=== PATIENT | female | born 1995 | race Caucasian/White ===

== ENCOUNTER 2025-05-27 23:20 | Observation (INO) | payer OTHER, SELFPAY ==
[2025-05-28 01:24] VITALS: BMI 34.7
--- NOTE | 2025-05-28 01:24 | OBADM ---
This patient, Cristina Turner, admitted to the OB room Labor/Delivery/Recovery 106 for observation. Patient/family oriented to hospital policies and general routines including ID bracelet, bed and alarms, visiting hours, pain management, procedures, bathroom and other care routines, personal items, smoking policy, room service/diet, and visiting hours. Patient/Family are encouraged to report perceived risks to care and to ask questions if they do not understand what they are told or what they should do.
[2025-05-28 01:45] VITALS: BP 112/71; PULSE 73
--- NOTE | 2025-05-29 09:37 | PM.OBTRLD ---
OB - Triage/Final Diagnosis Visit Information Reason for evaluation: threatened labor Comments/Additional reasons for admission: I have assessed the risk for this patient, Cristina Durga Quinterosemmahernandez, and determined that she would benefit from observation care.
== END 2025-05-28 01:47 | disposition home or self-care (01) ==
PROVIDERS: Admitting Provider Obstetrics & Gynecology; PCP Nurse Practitioner; Visit Provider Obstetrics & Gynecology
DX: O47.1 False labor at or after 37 completed weeks of gestation (principal); Z3A.40 40 weeks gestation of pregnancy
CPT/HCPCS: 59025; G0378; G0379

== ENCOUNTER 2025-05-29 06:24 | Inpatient (IN) | payer OTHER, SELFPAY ==
[2025-05-29] VITALS (243 sets, daily range): BP systolic 83–176; BP diastolic 45–134; PULSE 50–242; RESP 18; TEMP 36.4–37.7; O2SAT 80–100; BMI 34.6
--- OUTSIDE RECORDS SUMMARY | 2025-05-29 06:31 | XMS_ITS | Clinical Summary ---
Author Organization [facility] Address [address] [place] [address] Care Team Providers Care Medical Staff Physician Name Role Phone Emily Cuba CURRICULUM DEVELOPER Primary Care Provider [phone] Allergies Active Allergy Reactions Criticality Noted Date Comments Banana Swelling,Other (see comment) Low 12/10/2014 Swelling, itching Dander Other (see comment) Low 12/14/2018 cats Medications albuterol sulfate HFA 108 (90 Base) MCG/ACT inhalerIndicatio ns:Acute bronchitis, unspecified organism Inhale 2 puffs into the lungs every 4 (four) hours as needed for Wheezing or Shortness of breath. 18 g 1 Active ALPRAZolam 0.25 MG tabletIndication s:Anxiety Take 1/2 to 1 tab daily as needed for anxiety 10 tablet 1 Active Active Problems Problem Noted Date Diagnosed Date Premenstrual dysphoric disorder 03/30/2021 Menstrual syndrome 03/30/2021 Generalized anxiety disorder 11/12/2020 Allergic urticaria 07/26/2017 Overview (08/13/2018): Date Onset: 07/26/2017 Allergic rhinitis 08/04/2012 Resolved Problems Problem Noted Date Diagnosed Date Resolved Date Anxiety and depression 09/02/202011/12 Immunizations Immunization Administration Dates Next Due Dtap 12/26/2002, 9,07/14/1998,04/28/1998,0 02/24/1998 H1N1 2009 Influenza Vaccine 07/28/2009 H1N1 Injectable 2009 Influenza 07/28/2009 HPV 09/27/2012, 2,05/24/2012,05/24/2012,0 03/27/2012,03/27/2012 Hepatitis A Vaccine - 2 Dose 09/27/2012,03/27/20 12 Hepatitis B 04/13/1999,04/28/1998,02/24/1998 Hib (Generic) 01/04/2006,04/13/1999,04/28/1998 ,02/24/1998 Hib-Hepatitis B (Comvax) 04/13/1999,04/28/1998,0 02/24/1998 Influenza (Generic) 07/28/2009 MMR 12/26/2002,01/06/1999 Meningococcal 05/24/2012 Meningococcal (Generic) 03/19/2015,05/24/2012 Pneumococcal (Generic) 01/04/2006 Pneumococcal (Pneumovax 23) 01/04/2006 Polio IPV (Ipol) 12/26/2002,01/06/1999, 8,02/24/1998 Polio Ipv (Generic) 12/26/2002,01/06/1999,1997,02/24/1998 Tdap (Generic) 03/27/2012 Varicella Vaccine 05/24/2012,04/13/1999 Family History Medical History Relation Comments risk stroke Father Breast Cancer Mother Lung Cancer Mother Breast Cancer Paternal Grandmother alzheimers Paternal Grandmother bone cancer Paternal Grandmother skin cancer Paternal Grandmother Relation Status Comments Father Mother Paternal Grandmother Social History Tobacco Use Types Packs/Day Years Used Date Smoking Tobacco: Never Smokeless Tobacco: Never Tobacco Cessation:Counseling Given: Not Answered Comments:Provider to dormitory counselor Alcohol Use Standard Drinks/Week Comments No 0 (1 standard drink = 0.6 oz pur e alcohol) AUDIT-C Answer Date Recorded Frequency of Alcohol Consumption Never 08/13/2018 Average Number of Drinks Not on file 018 Frequency of Binge Drinking Not on file 08/02 PHQ-2 Answer Date Recorded Patient Health Questionnaire-2 Score 0 10/09/2023 Education Answer Date Recorded What is the highest level of school you have completed or the highest degree you have received? 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 Not on file Not on file Not on file Last Filed Vital Signs Vital Sign Reading Time Taken Comments Blood Pressure 106/74 10/13/2023 11:29 AM MATH INTERVENTIONIST Pulse 104 10/13/2023 11:29 AM MATH INTERVENTIONIST Temperature 36.7 C (98 F) 10/13/2023 11:29 AM MATH INTERVENTIONIST Respiratory Rate 18 10/13/2023 11:29 AM MATH INTERVENTIONIST Oxygen Saturation 98% 10/13/2023 11:29 AM MATH INTERVENTIONIST Inhaled Oxygen Concentration - - Weight 74.4 kg (164 lb) 10/13/2023 11:29 AM MATH INTERVENTIONIST Height 160 cm (5' 3) 10/13/2023 11:29 AM MATH INTERVENTIONIST Body Mass Index 29.05 10/13/2023 11:29 AM MATH INTERVENTIONIST Plan of Treatment Health Maintenance Due Date Last Done Comments Hepatitis C 12/20/2015 DTaP, Tdap and Td Vaccines (7 - Td or Tdap) 03/27/2022 03/27/2012, 12/26/2002, 04/13/1999, Additional history exists Annual Physical 05/25/2022 05/25/2021 Cervical Cancer Screening Pap Smear (Age 21 to 29) Every 3 Years 05/25/2024 05/25/2021 Cervical Cancer Screening 05/25/2024 COVID-19 Vaccine ( season) 2024 PHQ-2 (Physician [place]) 10/02/2024 10/09/2023 Hepatitis B Vaccines Completed 04/13/1999, 04/13/1999, 04/28/1998, Additional history exists Pneumococcal Vaccine: Pediatrics (0 to 5 Years) and At-Risk Patients (6 to 49 Years) Aged Out 01/04/2006, 01/04/2006 No longer eligibl e based on patient's age to complete this topic HPV Vaccines Completed 09/27/2012, 09/02, 05/24/2012, Additional history exists Chlamydia Screening Females ages 16-24 Discontinued 12/10/2014 Meningococcal Vaccine Aged Out 03/19/2015 , 05/24/2012, 05/24/2012 No longer eligible based on patient's age to complete this topic Meningococcal B Vaccine Aged Out No l onger eligible based on patient's age to complete this topic RSV Immunizations Under 20 Months Aged Out No longer eligible based on patient's age to complete this topic Procedures Procedure Name Priority Date/Time Associated Diagnosis Comments CYTOPATH CERV/VAG THIN LAYER Routine 05/25/2021 12:00 AM CDT C.TRACHOMATIS RNA TMA Routine 12/10/2014 3:45 PM CDT from Last 3 Months or Most Recently Relevant to Health Maintenance Results * Cytopath Cerv/Vag Thin Layer (05/25/2021 12:00 AM CDT) COPATH REPORT [address] [address] [phone] Department of Pathology Pathology Report Gynecological Cytology Report Patient Name: LICHA ZAPIEN : 1995 (Age: 25) Location: [facility] Gender: F Collected Date: 05/25/2021 Med Rec #: [id number] Date Received: 05/26/2021 Date Reported: 05/26/2021 Provider: EMILY GARRISON-C Final Cytologic Diagnosis Satisfactory for evaluation. Endocervical component not identified. Negative for Intraepithelial Lesion or Malignancy. Electronically Signed Out By José Miguel Cardenas Source of Specimen(s) Cervical/Endocervi ann marie - Thin Prep Clinical History Screening, last Pap not provided. Z12.4 Date of Last Menstrual Period: spotting Billing Fee Code(s): A: [address] [facility] () [facility] 05/25/2021 05/26/2021 11: 08 AM CDT Comment:CERVICAL/ENDOCERVICA L - THIN PREP us Emily Cuba CURRICULUM DEVELOPER PATHOLOGY/CYTOLOGY ORDERABLES Final Result [facility] ([facility] [address] [place] [phone], * C.TRACHOMATIS RNA TMA (12/10/2014 3:45 PM CDT) CHLAMYDIA TRACHOMATIS RNA TMA NOT DETECTED NOT DETECTED [facility] TO EPIC CONVERSION N.GONORRHOEAE RNA TMA (QST) NOT DETECTED NOT DETECTED [facility] TO EPIC CONVERSION Comment: This test was performed using the APTIMA COMBO2 Assay ([employer] The analytical performance characteristics of this assay, when used to test SurePath specimens have been determined by [facility]. SOPHIE ESTEBANDO,MPH REPORT STATUS Not required [facility] TO EPIC CONVERSION Comment: THIS TEST WAS PERFORMED AT [facility] [address] [place] [address] 12/10/2014 3:45 PM CDT 12/10/2014 3:45 PM CDT Narrative [facility] TO EPIC CONVERSION - 12/12/2014 4:37 PM CDT This lab was migrated from [facility] and may be missing annotations or result text, please check the Media tab for the most complete results. Emily GARRISON MICROBIOLOGY - GENERAL ORDERA BLES Final Result [facility] TO EPIC CONVERSION from Last 3 Months or Most Recently Relevant to Health Maintenance Insurance [facility] Care Teams Medical Staff Physician Relationship Specialty Start Date End Date Emily Cuba FNP [address] [place] [address] [place] [address] PCP - General Nurse Practitioner Family 03/16/19
--- NOTE | 2025-05-29 06:54 | P.HP_ITS ---
H&P: HPI History of Present Illness Date/Time: 05/29/25 06:54 Chief Complaint: Here for induction of labor Narrative: 29 y/o G1 at 40 2/7 here for induction of labor for mild oligohydramnios. She feels some contractions. uncomplicated. GBS neg. Review of Systems Review of Systems: All systems reviewed & are unremarkable except as noted in HPI and below PMFSH Family History Family History Father Skin cancer COPD (chronic obstructive pulmonary disease) Grandparent Skin cancer Breast cancer Mother Breast cancer Lung cancer Social History Social History Smoking status: Never smoker Second hand tobacco smoke exposure: Yes Substance use: current Substance use type: does not use Lack of Transportation: No Lack of Food: Never True Current Housing: I Have Housing Concerned About Future Housing: No Difficulty Paying Gas/Electric Bills: No Difficulty Paying for Meds: No Currently Unemployed: No Education: High School Diploma/GED Difficulty w/ Childcare or Family Care: No Spiritual care concerns: No Meds Home Medications and Allergies Home Medications ?Medication ?Instructions ?Recorded ?Confirmed ?Type docosahexaenoic acid 200 mg mg PO 04/03/25 05/27/25 Hi story capsule ( DHA) Allergies Allergy/AdvReac Type Severity Reaction Status Date / Time bananas Allergy Mild Swelling Uncoded 05/29/25 07:02 of Lip/Tongue/Throat Vital Signs Vital Signs - 24 hr 05/29/25 06:42 Pulse Rate 100 Blood Pressure 124/77 Exam Const: Other: Well-developed, well-nourished female in no acute distress. Neck: Other: Neck: Trachea midline, no thyromegaly or masses. Resp: Other: Lungs: Normal respiratory effort. Clear to auscultation bilaterally. Cardio: Other: Heart: Regular rate and rhythm with normal S1-S2. GI: Other: ABD: Soft, nontender, nondistended, gravid. No guarding or rebound tenderness. No hepatosplenomegaly. NST reactive. TOCO: contractions every 3-5 min : Other: Cervix: 2/80/-2. AROM with meconium-stained fluid. Vertex. Back/Spine/Pelvis: Other: Back: No CVA tenderness. Skin: Other: Skin: No lesions, rashes or ulcers noted. Extrem: Other: Extremities: nontender with no edema Psych: Other: Mental status grossly normal, with normal mood and affect. Assessment and Plan Assessment and plan (1) : Qualifiers: Weeks of gestation: 40 weeks Qualified Code(s): Z3A.40 - 40 weeks gestation of Code(s): Z34.90 - Encounter for supervision of normal , unspecified, unspecified trimester Status: Acute Assessment and Plan: A: IUP at 40 2/7 weeks with oligohydramnios, here for induction of labor. P: Oxytocin. Anticipate . Peds aware of meconium. (2) Oligohydramnios: Qualifiers: Fetus number: single or unspecified fetus Trimester: third trimester Qualified Code(s): O41.03X0 - Oligohydramnios, third trimester, not applicable or unspecified Code(s): O41.00X0 - Oligohydramnios, unspecified trimester, not applicable or unspecified Status: Acute
[2025-05-29 07:01] LABS: Hematocrit 35.8 % (37.0-47.0); Hemoglobin 11.7 g/dL (12.0-15.0); Immature Granulocyte Percent A 0.4 % (0-0.5); Lymphocytes Absolute Auto 3.80 K/mm3 (0.9-3.2); Mean Corpuscular HGB Conc 32.7 g/dl (32-36); Mean Corpuscular Hemoglobin 30.3 pg (26-34); Mean Corpuscular Volume 92.7 fl (80-100); Nucleated Red Blood Cells Absolute Auto 0.000 K/mm3 (0.0-0.012); Nucleated Red Blood Cells Perc 0.0 % (0.0-0.2); Platelet Count Result 272 k/mm3 (150-375); Red Blood Count 3.86 M/mm3 (4.2-5.4); White Blood Count 11.2 K/mm3 (4.5-10.0)
--- NOTE | 2025-05-29 07:09 | LDADM ---
This patient, Cristina Turner, was admitted to Labor/Delivery/Recovery 107 on 05/29/25 at 06:24. Plans for labor, pain management and were discussed with patient. Patient/family oriented to hospital policies and general routines including ID bracelet, bed and alarms, visiting hours, pain management, procedures, bathroom and other care routines, personal items, smoking policy, room service/diet and guest tray routines, security routines, and visiting hours. Patient/Family are encouraged to report perceived risks to care and to ask questions if they do not understand what they are told or what they should do. See OBIX for further documentation.
[2025-05-29] MEDS: LACTATED RINGERS 1,000 ML 125 ML IV CONT ×3 (07:27→16:31)
[2025-05-29] MEDS: OXYTOCIN 30 UNITS/NS 500 ML 30 UNITS/500 ML BAG 6 UNITS IV CONT (07:30)
[2025-05-29 09:29] LABS: Syphilis IgG/IgM Antibody Non-Reactive (Nonreactive)
[2025-05-29] MEDS: ONDANSETRON INJ 4 MG/2 ML VIAL IV PUSH (10:22)
--- NOTE | 2025-05-29 12:55 | PM.OBPNLAB ---
Pain Control Date/time seen: 05/29/25 12:55 Comments: Comfortable with epidural. Pelvic Exam Dilation (cm): 4 Effacement (%): 80 station: -2 Comments: IUPC placed. Contractions Contraction frequency: 3 Contraction pattern: Regular Status Comments: Reactive. Assessment and Plan Comments: Continue labor augmentation. Peds aware of meconium.
--- NOTE | 2025-05-29 13:07 | WPDANESEPPF ---
Anes - Initial Pre Proc Eval Procedure: labor epidural Date/Time: 05/29/25 13:07 Surgeon: Perez Galan MD Pre Op Diagnosis: labor pain Pre Op Diagnosis: IOL Patient Data Age: 29 Gender: F Height: 1.6 m Weight: 88.63 kg Last Vital Signs Temp 36.4 C L 05/29/25 13:01 Pulse 65 05/29/25 12:46 BP 114/68 05/29/25 12:46 Pulse Ox 100 05/29/25 13:06 O2 Del Method Room Air 05/29/25 07:09 Allergies Allergy/AdvReac Type Severity Reaction Status Date / Time bananas Allergy Mild Swelling Uncoded 05/29/25 07:02 of Lip/Tongue/Throat Home Medications ?Medication ?Instructions ?Recorded ?Confirmed ?Type docosahexaenoic acid 200 mg mg PO 04/03/25 05/27/25 History capsule ( DHA) Laboratory Tests 05/29/25 06:55 WBC 11.2 H K/mm3 (4.5-10.0) RBC 3.86 L M/mm3 (4.2-5.4) Hgb 11.7 L g/dL (12.0-15.0) Hct 35.8 L % (37.0-47.0) MCV 92.7 fl (80-100) MCH 30.3 pg (26-34) MCHC 32.7 g/dl (32-36) RDW 13.5 % (11.5-14.5) Plt Count 272 k/mm3 (150-375) MPV 11.4 H fl (7.4-10.4) Immature Gran % (Auto) 0.4 % (0-0.5) Neut % (Auto) 59.7 % (45.5-73.1) Lymph % (Auto) 34.0 % (18.3-44.2) [place] % (Auto) 3.8 % (2.6-8.5) Eos % (Auto) 1.3 % (0-4.4) Baso % (Auto) 0.8 % (0.2-1.2) Lymph # (Auto) 3.80 H K/mm3 (0.9-3.2) [place] # (Auto) 0.4 K/mm3 (0.1-0.6) Eos # (Auto) 0.2 K/mm3 (0-0.3) Baso # (Auto) 0.1 K/mm3 (0.0-0.1) Abs Immat Gran (auto) 0.04 H K/mm3 (0.00-0.031) Absolute Neuts (auto) 6.7 K/mm3 (1.3-6.7) Absolute Nucleated RBC 0.000 K/mm3 (0.0-0.012) Nucleated RBC % 0.0 % (0.0-0.2) Syphilis IgG/IgM Ab Non-reactive (Nonreactive) Blood Type A Positive Antibody Screen Negative Patient hx anesthesia problems: none Family hx anesthesia problems: none Results Review: All pre-operative results and documents have been reviewed as part of the pre-operative evaluation. [facility] Family History Family History Father Skin cancer COPD (chronic obstructive pulmonary disease) Grandparent Skin cancer Breast cancer Mother Breast cancer Lung cancer Social History Social History Smoking status: Never smoker Second hand tobacco smoke exposure: Yes Substance use: current Substance use type: does not use Lack of Transportation: No Lack of Food: Never True Current Housing: I Have Housing Concerned About Future Housing: No Difficulty Paying Gas/Electric Bills: No Difficulty Paying for Meds: No Currently Unemployed: No Education: High School Diploma/GED Difficulty w/ Childcare or Family Care: No Spiritual care concerns: No Anes - Eval Final PreProcedure Day of Procedure 05/29/25 13:07 Patient weight: obese ASA classification: II Anesthetic plan: proceed Anesthesia type and monitoring: regional epidural and standard monitoring Results Review: All pre-operative results and documents have been reviewed as part of the pre-operative evaluation. Informed Consent: The patient's anesthetic plan and its attendant risks and benefits were discussed with the patient/family/POA. Questions were solicited and answers provided to the satisfaction of the patient/family/POA.
[2025-05-29] MEDS: SODIUM CHLORIDE 0.9% IV 300 ML 600 ML I-UTERINE (14:41)
--- NOTE | 2025-05-29 16:35 | PM.OBPNLAB ---
Pain Control Date/time seen: 05/29/25 16:35 Comments: Comfortable with epidural. Pelvic Exam Dilation (cm): 8 Effacement (%): 90 station: 0 Contractions Contraction frequency: 3 Contraction pattern: Regular Status status: Category l Assessment and Plan Pitocin rate (mU/min): 4 Comments: Continue labor
--- NOTE | 2025-05-29 18:14 | PM.OBPNLAB ---
Pain Control Date/time seen: 05/29/25 18:14 Comments: Feeling pressure. Pelvic Exam Dilation (cm): 10 Effacement (%): 100 station: +2 Contractions Contraction frequency: 3 Contraction pattern: Regular Status status: Category l Assessment and Plan Pitocin rate (mU/min): 3 Comments: Pushing.
--- NOTE | 2025-05-29 19:15 | PM.OBPRVD ---
OB - Vaginal Delivery Note Procedure Delivery date: 05/29/25 Induction method: Per Pitocin Protocol Delivery augmentation: Rupture of Membranes Delivery monitor: External FHT, External Uterine and Internal Uterine Route of delivery: Laceration Description: Perineal - 2nd Degree Delivery repair: vicryl (3-0) Specimen: Yes (cord blood, placenta) Quantitative Blood Loss (ml): 220 Anesthesia type: Epidural Disposition: PACU Complications: None Narrative: 29 y/o G1 at 40 2/7 weeks gestation who presented to the hospital for induction of labor. Oxytocin was administered intravenously. Amniotomy was performed with return of meconium-stained fluid. She received an epidural for pain control. Her labor progressed and her cervix dilated completely. She pushed with good effort and delivered the infant's head to the perineum. A loose nuchal cord was splinted and the body delivered. The cord was reduced and the nose and mouth were bulb suctioned. After a delay, the cord was clamped and cut. The infant was handed off the field. Cord blood was collected. The placenta delivered spontaneously and was grossly normal in appearance. The usual 3 vessel cord was noted. A second degree midline perineal laceration was sustained. This was reapproximated using 3 0 Vicryl in the usual layered fashion. Excellent hemostasis resulted as did excellent reapproximation of the normal anatomy. Needle and instrument counts were correct. The patient was taken to recovery room in stable condition. The went to the nursery in stable condition. I was present and scrubbed for the entire delivery. Baby Date of : 05/29/25 Time of : 18:44 Gestational Age by Date: 40 Infant gender: Male Weight (pounds): 6 Weight (ounces): 1 presentation: vertex position: Right Occiput Anterior Placenta delivery description: Spontaneous and Normal Configuration Cord Vessel Description: 3 Vessels, Nuchal Cord (x1) and Delayed Cord Clamping score one minute: 7 score five minutes: 9
--- NOTE | 2025-05-29 19:17 | PM.OBDSVD ---
DS: Admitting Diagnosis Discharge Date 05/30/25 Admitting Diagnosis IUP at 40 2/7 weeks Oligohydramnios DS: Discharge Diagnosis Discharge Diagnosis (1) (normal spontaneous vaginal delivery): Code(s): O80 - Encounter for full-term uncomplicated delivery Status: Acute OB - DS: Summary OB Procedures : NST OB Procedures Intrapartum: Spontaneous Vag Delivery OB Procedures: : None Peripartum Data Laceration Description: Perineal - 2nd Degree Time Spent with Patient Time attestation: Total time spent providing and/or coordinating discharge services: DS: Data Data Completed and Pending Labs on day of discharge: Labs from last 24 hours 05/29/25 06:55 WBC 11.2 H RBC 3.86 L Hgb 11.7 L Hct 35.8 L MCV 92.7 MCH 30.3 MCHC 32.7 RDW 13.5 Plt Count 272 MPV 11.4 H Immature Gran % (Auto) 0.4 Neut % (Auto) 59.7 Lymph % (Auto) 34.0 [place] % (Auto) 3.8 Eos % (Auto) 1.3 Baso % (Auto) 0.8 Lymph # (Auto) 3.80 H [place] # (Auto) 0.4 Eos # (Auto) 0.2 Baso # (Auto) 0.1 Abs Immat Gran (auto) 0.04 H Absolute Neuts (auto) 6.7 Absolute Nucleated RBC 0.000 Nucleated RBC % 0.0 Syphilis IgG/IgM Ab Non-reactive Blood Type A Positive Antibody Screen Negative Discharge Plan Discharge Attending physician on discharge: Perez Galan Discharging Clinician: Perez Galan Patient Disposition: Home Activity: pelvic rest Diet: regular Discharge Instructions: Call or return if temperature above 100.4? F, increased abdominal pain, increased vaginal bleeding or any new problems. Patient Language: Cymro Stand Alone Forms: General Discharge Information Follow-up/Referrals: Perez Galan MD [Physician, NAME PLATE STAMPING MACHINE OPERATOR] - 6 Weeks Discharge Medications: New ibuprofen 600 mg tablet 600 mg PO Q6H PRN (Reason: cramps) Qty: 30 0RF Continued DHA 200 mg capsule PO Date of admission: 05/29/25 06:24 Primary Care Provider: MarcellusPina Admitting Provider: Perez Galan Attending physician on admission: Perez Galan Condition: Stable
[2025-05-29] MEDS: OXYTOCIN 30 UNITS/NS 500 ML 30 UNITS/500 ML BAG 125 UNITS IV CONT (19:22)
--- NOTE | 2025-05-29 19:27 | S_PTH ---
PATIENT: Cristina Turner LOC: ANH[facility] U#:[id number] AGE/SX: 29/F ROOM: 285 RE05/29/[address]: Perez Galan MD : 1995 BED: 00 DIS: 05/30/2025 SPEC #: [id number] RECD: 05/30/25 07:03 STATUS: BARNEY REAileen #: [id number] ANDREA: 05/29/25 19:[address]: Perez Galan DEPT: [facility] Surgical RECD BY: Maddie Monet ENTERED: 05/30/25 07:04 SP TYPE: Surgical OTHR DR: Pina Cuba, SOLID WASTE DISPOSAL MANAGER-C Tissues: A - Placenta Procedures: Hematoxylin and Eosin Stain Gross and Microscopic Level 5
[2025-05-29] MEDS: ACETAMINOPHEN 325 MG TABLET 650 MG PO (19:31)
[2025-05-29] MEDS: IBUPROFEN 600 MG TABLET PO (21:30)
--- NOTE | 2025-05-29 22:27 | OBPPTRN ---
Patient transferred to post room #285 via wheelchair. Support person present. Oriented to unit, room, information board, rooming in, admission packet and security measures. Patient verbalizes understanding.
[2025-05-30 03:40] VITALS: BP 106/60; PULSE 69; RESP 18; TEMP 36.6; O2SAT 97
[2025-05-30 05:32] LABS: Hematocrit 30.4 % (37.0-47.0); Hemoglobin 10.2 g/dL (12.0-15.0)
[2025-05-30] MEDS: ACETAMINOPHEN 325 MG TABLET 650 MG PO ×3 (06:08→20:10)
[2025-05-30 07:25] VITALS: BP 108/58; PULSE 69; RESP 16; TEMP 36.6; O2SAT 97
[2025-05-30] MEDS: MULTIVIT/MIN/PREN/FOL AC/IRON TABLET 1 TAB PO (08:53)
[2025-05-30] MEDS: IBUPROFEN 600 MG TABLET PO ×2 (08:53→20:10)
--- NOTE | 2025-05-30 09:29 | WPDANESPN ---
Anes - Prog Note Post-Op Date/Time: 05/30/25 09:29 Cardiovascular status: normal Respiratory status: normal Airway patency: baseline Mental status: baseline Post-Op hydration status: normal Vital Signs: Last Vital Signs Temp 36.6 C 05/30/25 07:25 Pulse 69 05/30/25 07:25 Resp 16 05/30/25 07:25 BP 108/58 L 05/30/25 07:25 Pulse Ox 97 05/30/25 07:25 O2 Del Method Room Air 05/29/25 07:09 Pain Score (VAS): 2 I/O: Intake & Output 05/29/25 05/30/25 05/30/25 23:59 07:59 15:59 Intake Total 1000 Balance 1000 Laboratory Tests 05/30/25 03:09 05/29/25 05/30/25 06:55 03:09 Hgb 10.2 L Hct 30.4 L Syphilis IgG/IgM Ab Non-reactive Post-procedural complaints: none Patient Feedback: Patient satisfied with anesthetic care.
--- NOTE | 2025-05-30 09:50 | PC.NURSE ---
Patient requested assistance. She had baby in a cradle hold, propped up on pillows. She had the nipple shield applied correctly but was unable to get baby to latch due to his fussiness. We worked to get baby to open wide and latch, and after two attempts he latched and suckled. Mom only needed to be shown how to guide baby's head to the breast a little quicker. He was intermittently suckling with stimulation and encouragement from mom. She is advised to ensure the nipple shield does not slide in and out of baby's mouth, and that she keeps his nose and chin close to the breast. Mom is educated that many infants are sleepy in the first days of life and may need to be stimulated throughout the feeding. Patient agrees to call out for additional assistance in switching sides or with any other questions or concerns. Primary RN updated.
--- NOTE | 2025-05-30 10:17 | P.PNOB_ITS ---
OB - PN: Subj Subjective Date/time seen: 05/30/25 10:17 Narrative: Pain OK. Would like circumcision for son. OB - PN: Obj Data Labs 05/30/25 03:09 Labs: Laboratory Results - last 24 hr 05/30/25 03:09 Hgb 10.2 L Hct 30.4 L OB - PN A/P Plan day: 1 Comments: A: PPD#1, doing well. P: Routine care. Reviewed circ. Exam 2 Psych: Other: AVSS ABD soft, nontender, fundus firm EXT nontender
[2025-05-30 12:13] VITALS: BP 106/69; PULSE 74; RESP 16; TEMP 36.9; O2SAT 98
--- NOTE | 2025-05-30 15:00 | PC.NURSE ---
Breast pump provided due to [consistent use of nipple shield]. Instructions given on cleaning, care, usage, that there should be no pain, pumping schedule for milk production, collection, and storage of human milk. Patient was assessed for correct placement, flange size (21mm), to pump for adequate milk production every 3 hours (8 times in 24 hours) 1-2 times at night. Bottle brush and soap provided for cleaning.?Discussed ways to use small drops of colostrum or refrigerate for future feeds. Mother voiced understanding of the education shared along with mom/baby guide for additional resource information. Reported to the Primary RN.
[2025-05-30 20:43] VITALS: BP 122/77; PULSE 82; RESP 16; TEMP 36.4; O2SAT 100
[2025-06-02 09:10] VITALS: BP 127/69; PULSE 78; RESP 18; TEMP 36.6; O2SAT 100
== END 2025-05-30 23:28 | disposition home or self-care (01) | DRG 807 ==
LOC: ANHLDR 19:18 → ANHOB2 22:29
PROVIDERS: Admitting Provider Obstetrics & Gynecology; PCP Nurse Practitioner; Visit Provider Obstetrics & Gynecology
DX: O41.03X0 Oligohydramnios, third trimester, not applicable or unspecified (principal); Z37.0 Single live birth; O70.1 Second degree perineal laceration during delivery; O69.81X0 Labor and delivery complicated by cord around neck, without compression, not applicable or unspecified; O77.0 Labor and delivery complicated by meconium in amniotic fluid; Z3A.40 40 weeks gestation of pregnancy
CPT/HCPCS: 36415; 85014; 85018; 85025; 86593; 86850; 86900; 86901; 88307; A9270; J2405; J2590; J2795; J7030; J7120